=== PATIENT | female | born 1970 | race Caucasian/White ===

== ENCOUNTER 2022-11-04 06:44 | Outpatient (CLI) | payer BC ==
[~2022-11-04 06:44] MED LIST: ATEN25TA PO; LISI10TA27 PO
[2022-11-04 07:52] LABS: ALANINE AMINOTRANSFERASE 29 U/L (12-78); ALBUMIN 3.5 G/DL (3.4-5.0); ALBUMIN/GLOBULIN RATIO 0.9 (1.1-1.5); ALKALINE PHOSPHATASE 73 IU/L (46-116); ANION GAP 9 (8-16); ASPARTATE AMINO TRANSFERASE 30 U/L (10-37); BILIRUBIN,TOTAL 0.6 MG/DL (0.1-1.0); BLOOD UREA NITROGEN 10 MG/DL (7-18); BUN/CREATININE RATIO 16.9 (10.0-20.0); CALCIUM 9.5 MG/DL (8.5-10.1); CHLORIDE 102 MMOL/L (99-107); CREATININE 0.59 MG/DL (0.40-0.90); GLUCOSE 262 MG/DL (70-104); POTASSIUM 3.6 MMOL/L (3.5-5.1); SODIUM 137 MMOL/L (135-145); TOTAL CARBON DIOXIDE 25.9 MMOL/L (24-32); TOTAL PROTEIN 7.4 G/DL (6.4-8.2); eGFR > 90 ML/MIN
[2022-11-04 07:54] LABS: BILIRUBIN,DIRECT 0.2 MG/DL (0-0.3); HEMOGLOBIN A1C > 12.0 % (4.5-6.2)
== END 2022-11-04 23:59 | disposition home or self-care (01) ==
LOC: LAB 06:44
PROVIDERS: ATTEND Ophthalmology
DX: R73.09 Other abnormal glucose (principal)
CPT/HCPCS: 36415; 80053; 82248; 83036

== ENCOUNTER 2023-02-21 08:38 | Outpatient (CLI) | payer BC | END 2023-02-21 23:59 | disposition home or self-care (01) | LOC: RAD 08:38 | PROVIDERS: ATTEND Family Medicine | DX: M47.817 Spondylosis without myelopathy or radiculopathy, lumbosacral region (principal); M48.07 Spinal stenosis, lumbosacral region; M51.26 Other intervertebral disc displacement, lumbar region; M47.812 Spondylosis without myelopathy or radiculopathy, cervical region; M48.02 Spinal stenosis, cervical region; M50.223 Other cervical disc displacement at C6-C7 level; R20.0 Anesthesia of skin; R20.2 Paresthesia of skin | CPT/HCPCS: 72141; 72148 ==